=== PATIENT | female | born 1995 | race Two or more races ===

== ENCOUNTER 2024-09-25 13:00 | Inpatient (IN) | payer BC ==
[~2024-09-25] VITALS: Ht 157.5 cm; Wt 70.0 kg
--- NOTE | 2024-09-25 13:14 | ED.PDOC ---
History of Present Illness HPI Comments 29-year-old female with PMHx Bigeminal PVCs presents with a chief complaint near syncopal episode, with associated weakness, faintness, ringing in ear, blurred vision, palpitations, chest pain. 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 Time Seen by MD: 13:05 Reviewed Notes: Medications, Allergies Information Source: Patient Mode of Arrival: Ambulatory Severity: Moderate Timing: Minutes Duration: Since onset Prehospital treatment: None Past Medical History PAST MEDICAL HISTORY: Denies Past Medical History (Other): Bigeminy PVCs Surgical History: Denies all surgeries COACH BUILDER History: Denies all COACH BUILDER Hx Family History Family History: Reviewed,noncontributory to illness Social History Smoker: Non-Smoker Alcohol: Denies ETOH Use Drugs: Denies Drug Use Lives In: Home Constitutional: reports: weakness; denies: chills, diaphoresis, fatigue, fever, malaise, sweats, others EENTM: reports: blurred vision, ear ringing; denies: double vision, ear bleeding, ear discharge, ear drainage, ear pain, eye pain, eye redness, hearing loss, mouth pain, mouth swelling, nasal discharge, nose bleeding, nose congestion, nose pain, photophobia, tearing, throat pain, throat swelling, voice changes, others Respiratory: denies: cough, hemoptysis, orthopnea, SOB at rest, shortness of breath, SOB with excertion, stridor, wheezing, others Cardiovascular: reports: palpitations, syncope; denies: chest pain, dizzy spells, diaphoresis, Dyspnea on exertion, edema, irregular heart beat, left arm pain, lightheadedness, PND, others Gastrointestinal: denies: abdomen distended, abdominal pain, blood streaked bowels, constipated, diarrhea, dysphagia, difficulty swallowing, hematemesis, melena, nausea, poor appetite, poor fluid intake, rectal bleeding, rectal pain, vomiting, others Genitourinary: denies: abnormal vagina bleeding, burning, dyspareunia, dysuria, flank pain, frequency, hematuria, incontinence, pain, , vagina discharge, urgency, others Neurological: reports: headache; denies: dizziness, fainting, left sided numbness, left sided weakness, numbness, paresthesia, pre-existing deficit, right sided numbness, right sided weakness, seizure, speech problems, tingling, tremors, weakness, others Musculoskeletal: denies: back pain, gout, joint pain, joint swelling, muscle pain, muscle stiffness, neck pain, others Integumetry: denies: bruises, change in color, change in hair/nails, dryness, laceration, lesions, lumps, rash, wounds, others Allergic/Immunocompromised: denies: Difficulty Healing, Frequent Infections, Hives, Itching, others Hematologic/Lymphatic: denies: anemia, blood clots, easy bleeding, easy bruising, swollen glands, others Endocrine: denies: excessive hunger, excessive sweating, excessive thirst, excessive urination, flushing, intolerance to cold, intolerance to heat, unexplained weight gain, unexplained weight loss, others Psychiatric: denies: anxiety, bipolar disorder, depression, hopeless, panic disorder, schizophrenia, sleepless, suicidal, others All Other Systems: Reviewed and Negative Physical Exam General Appearance: No Apparent Distress, Normal HEENT: Normal ENT Inspection, Pharynx Normal, TMs Normal Neck: Full Range of Motion, Non-Tender, Normal, Normal Inspection Respiratory: Chest Non-Tender, Lungs Clear, No Accessory Muscle Use, No Respiratory Distress, Normal Breath Sounds Cardiovascular: No Edema, No JVD, No Murmur, No Gallop, Normal Peripheral Pulses, Regular Rate/Rhythm Breast Exam: Deferred Gastrointestinal: No Organomegaly, Non Tender, No Pulsatile Mass, Normal Bowel Sounds, Soft Genitalia: Deferred Pelvic: Deferred Rectal: Deferred Extremities: No calf tenderness, Normal capillary refill, Normal inspection, No rmal range of motion, Non-tender, No pedal edema Musculoskeletal : Apperance: Normal Neurologic: Alert, supervisor laboratory II-XII nml as Tested, No Motor Deficits, Normal Affect, Normal Mood, No Sensory Deficits Cerebellar Function: Normal Reflexes: Normal Skin: Dry, Normal Color, Warm Lymphatic: No Adenopathy Was a procedure done? Was a procedure done?: No Differential Dx Considerations may include: arrhythmias, electrolyte disorders, acs, dehydration, heat stroke, hypoglycemia, tia X-Ray, Labs, Meds, VS Vital Signs Date Time Temp Pulse Resp B/P (MAP) Pulse Ox O2 Delivery O2 Flow Rate FiO2 09/25/24 13:12 107 09/25/24 13:10 98.2 121 18 125/80 (95) 98 98.2 Lab Test 09/25/24 14:11 09/25/24 13:17 Range/Units Troponin I High Sensitivity Pending < 3 L </=34 ng/L White Blood Count 8.7 4.4-10.8 10^3/uL Red Blood Count 4.76 4.0-5.20 10^6/uL Hemoglobin 13.8 12.2-16.2 g/dL Hematocrit 40.8 36.0-46.0 % Mean Corpuscular Volume 85.6 80.0-100.0 fL Mean Corpuscular Hemoglobin 29.0 28.0-32.0 pg Mean Corpuscular Hemoglobin Concent 33.9 32.0-36.0 g/dL Red Cell Distribution Width 13.2 11.8-14.3 % Platelet Count 254 140-450 10^3/uL Mean Platelet Volume 11.2 H 6.9-10.8 fL Neutrophils (%) (Auto) 80.2 H 37.0-80.0 % Lymphocytes (%) (Auto) 12.0 10.0-50.0 % Monocytes (%) (Auto) 6.7 0.0-12.0 % Eosinophils (%) (Auto) 0.5 0.0-7.0 % Basophils (%) (Auto) 0.6 0.0-2.0 % Neutrophils # (Auto) 7.0 1.6-8.6 10 ^3/uL Lymphocytes # (Auto) 1.0 0.4-5.4 10 ^3/uL Monocytes # (Auto) 0.6 0-1.3 10 ^3/uL Eosinophils # (Auto) 0 0-0.8 10 ^3/uL Basophils # (Auto) 0.1 0-0.2 10 ^3/uL Nucleated Red Blood Cells 0.0 % Sodium Level 139 136-145 mmol/L Potassium Level 4.0 3.5-5.1 mmol/L Chloride Level 102 98-107 mmol/L Carbon Dioxide Level 28 20-31 mmol/L Anion Gap 9 5-15 Blood Urea Nitrogen 12 9-23 mg/dL Creatinine 1.04 H 0.550-1.02 mg/dL Glomerular Filtration Rate Calc 75 >90 mL/min BUN/Creatinine Ratio 11.5 10.0-20.0 Serum Glucose 132 H 74-106 mg/dL Calcium Level 10.1 8.7-10.4 mg/dL Time of 1ST Reevaluation: 13:38 Reevaluation 1ST: Unchanged Time of 2ND Reevaluation: 14:22 Reevaluation 2ND: Improved Consultation: Cardiology (dr mazariegos) Patient Education/Counseling: Diagnosis, Treatment, Prognosis, Need For Follow Up Family Education/Counseling: No Family Present Comments pt is on propranolol for svt. today she has multiple PVCs on the EKG. along with her new symptoms, i am concerned about a dangerous arrhythmia causing her symptom. i called Dr Mazariegos. pt does not see him till the end of the month. she will be admitted for monitoring and cardiology consult Departure 1 Departure Time of Disposition: 14:24 Impression: Primary Impression: Near syncope Additional Impression: Arrhythmia Qualified Codes: I49.9 - Cardiac arrhythmia, unspecified Disposition: ADMITTED INPATIENT Admit to: Tele Condition: Serious Discharged With: Self Critical Care Note Critical Care Time?: Yes (55 min-critical care time only) Critical care comment: due to concerns for deterioration of patient's condition, the care required my highest level of attention and readiness. i assessed the patient's condition, reviewed relevant documents, communicated with medical personnel, ordered the p marlena tests and treatments, reassessed for results and response to treatments, spoke to family and consultants and formulated a plan of care Stability Stability form required: No Heart Score Heart Score: Heart Score Response (Comments) Value History Moderate Suspicious 1 EKG Repolarization Disturb 1 Age <45 0 Risk Factors No known risk factors 0 Troponin Normal limit 0 Total 2 I personally scribed for HUMBERTO CARDOZA MD ([email or web address]) on 09/25/24 at 13:14. Electronically submitted by Stef Uriarte ([email or web address]). HUMBERTO CARDOZA MD Sep 25, 2024 13:14
[2024-09-25 13:38] LABS: Basophils # (auto) 0.1 10 ^3/uL (0-0.2); Basophils % (auto) 0.6 % (0.0-2.0); Eosinophils # (auto) 0 10 ^3/uL (0-0.8); Eosinophils % (auto) 0.5 % (0.0-7.0); Hematocrit 40.8 % (36.0-46.0); Hemoglobin 13.8 g/dL (12.2-16.2); Mean Corpuscular Hgb Conc. 33.9 g/dL (32.0-36.0); Mean Corpuscular Volume 85.6 fL (80.0-100.0); Monocytes # (auto) 0.6 10 ^3/uL (0-1.3); Monocytes % (auto) 6.7 % (0.0-12.0); Neutrophils % (auto) 80.2 % (37.0-80.0); Platelet Count (auto) 254 10^3/uL (140-450); Red Blood Cells 4.76 10^6/uL (4.0-5.20); Red Cell Distribution Width 13.2 % (11.8-14.3); White Blood Cell 8.7 10^3/uL (4.4-10.8)
[2024-09-25 13:40] LABS: Chloride 102 mmol/L (98-107); Sodium 139 mmol/L (136-145)
[2024-09-25 13:41] LABS: Anion Gap 9 (5-15); Calcium 10.1 mg/dL (8.7-10.4); Carbon Dioxide 28 mmol/L (20-31)
--- NOTE | 2024-09-25 13:45 | DVH ---
EXAM: XY CHEST PORTABLE HISTORY: near syncope COMPARISON: None TECHNIQUE: Portable AP view of the chest was performed. FINDINGS: No pneumothorax, consolidative infiltrates, or pulmonary edema. The heart is not enlarged. IMPRESSION: No acute intrathoracic process.
[2024-09-25 13:46] LABS: BUN/Creatinine Ratio 11.5 (10.0-20.0); Blood Urea Nitrogen 12 mg/dL (9-23)
[2024-09-25 13:48] LABS: Glucose 132 mg/dL (74-106)
[2024-09-25] MEDS: ASPirin 325 MG TAB PO ONE (16:43)
[2024-09-25 16:59] LABS: Thyroid Stimulating Hormone 0.55 uIU/mL (0.55-4.78)
[2024-09-25 17:00] VITALS: PULSE 83; RESP 19; O2SAT 95
--- NOTE | 2024-09-25 17:05 | DVHHPRES ---
History of Present Illness Resident Creating Document: JAMA ROMERO RESIDENT Reason for Visit: presyncope History of Present Illness 29-year-old female with past medical history of bigeminy and PVCs , was taking metoprolol and was following wet chemistry analyst as an outpatient presented with complaints of presyncope. 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 Patient did not lose consciousness but mentioned she had in the chair and later it resolved spontaneously. Patient presented in the ED after that. Currently patient patient is mild palpitations but is not mentioning of any chest pain, shortness of breath, nausea, vomiting, diarrhea, constipation, abdominal pain. 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 EKG done in the hospital revealed Bigemini PVCs Medical history Bigeminy PVCs Presyncope Past surgical history Denied Medication history Metoprolol succinate Social history Denied alcohol, smoking, marijuana or any other drug intake Mentioned that she drinks coffee in form of energy drinks Family History Nonsignificant to the illness Review of Systems Review of Systems as described in the HPI Allergies: Coded Allergies: Penicillins (Verified Allergy, Unknown, RASH, 09/25/24) Exam Vital Signs Vital Signs Date Time Temp Pulse Resp B/P (MAP) Pulse Ox O2 Delivery O2 Flow Rate FiO2 09/25/24 13:12 107 09/25/24 13:10 98.2 18 125/80 (95) 98 98.2 Exam Physical exam ( LIMITED as patient is in hallway ) Examination General Appearance: Alert, Oriented X3, Cooperative, No acute distress HEENT: EOMI Respiratory: Clear to auscultation, Normal air movement Cardiovascular: Regular rate, Normal S1, Normal S2 Abdominal: Normal bowel sounds Extremities: No cyanosis, No edema, Normal pulses, No tenderness/swelling Skin: No rashes, No breakdown Neuro: Normal gait, Normal speech, Strength at 5/5 X4 ext, Normal tone, Sensation intact, Cranial nerves 3-12 NL, Reflexes 2+ Psych/Mental Status: Mental status NL, Mood NL Labs/Xrays Labs Test 09/25/24 14:11 09/25/24 13:17 Range/Units Troponin I High Sensitivity < 3 L </=34 ng/L White Blood Count 8.7 4.4-10.8 10^3/uL Red Blood Count 4.76 4.0-5.20 10^6/uL Hemoglobin 13.8 12.2-16.2 g/dL Hematocrit 40.8 36.0-46.0 % Mean Corpuscular Volume 85.6 80.0-100.0 fL Mean Corpuscular Hemoglobin 29.0 28.0-32.0 pg Mean Corpuscular Hemoglobin Concent 33.9 32.0-36.0 g/dL Red Cell Distribution Width 13.2 11.8-14.3 % Platelet Count 254 140-450 10^3/uL Mean Platelet Volume 11.2 H 6.9-10.8 fL Neutrophils (%) (Auto) 80.2 H 37.0-80.0 % Lymphocytes (%) (Auto) 12.0 10.0-50.0 % Monocytes (%) (Auto) 6.7 0.0-12.0 % Eosinophils (%) (Auto) 0.5 0.0-7.0 % Basophils (%) (Auto) 0.6 0.0-2.0 % Neutrophils # (Auto) 7.0 1.6-8.6 10 ^3/uL Lymphocytes # (Auto) 1.0 0.4-5.4 10 ^3/uL Monocytes # (Auto) 0.6 0-1.3 10 ^3/uL Eosinophils # (Auto) 0 0-0.8 10 ^3/uL Basophils # (Auto) 0.1 0-0.2 10 ^3/uL Nucleated Red Blood Cells 0.0 % Sodium Level 139 136-145 mmol/L Potassium Level 4.0 3.5-5.1 mmol/L Chloride Level 102 98-107 mmol/L Carbon Dioxide Level 28 20-31 mmol/L Anion Gap 9 5-15 Blood Urea Nitrogen 12 9-23 mg/dL Creatinine 1.04 H 0.550-1.02 mg/dL Glomerular Filtration Rate Calc 75 >90 mL/min BUN/Creatinine Ratio 11.5 10.0-20.0 Serum Glucose 132 H 74-106 mg/dL Calcium Level 10.1 8.7-10.4 mg/dL Assessment/Plan Assessment/Plan Assessment/plan #Presyncope likely due to ?Symptomatic PVC -Orthostasis vitals -EKG monitoring -NCCT head -TSH, b12, folate #Bigemini PVCs ?symptomatic -Telemetry to calculate the burden -EKG -Echo -Cardiology consult Case discussion with Dr Rowley Plan discussed with: Patient, Other My Orders Orders - JAMA ROMERO RESIDENT Procedure Category Date Status Time Admit ADMIT 09/25/24 Transmitted 16:09 Oxygen By Nasal RT 09/25/24 Transmitted Cannula 16:09 Stat Ekg For Chest BENJY 09/25/24 In Process Pain 16:09 Notify Of Changes BENJY 09/25/24 In Process From Base 16:09 Siebel Architect For BENJY 09/25/24 In Process 24 Hours 16:09 Emergency Dysrhythmia BENJY 09/25/24 In Process Protocol 16:09 Rhythm Strips Once BENJY 09/25/24 In Process Every Shift 16:09 * Cardiology Consult CONS 09/25/24 Transmitted 16:09 Thyroid Stimulating LAB 09/25/24 In Process Hormone 16:13 Urinalysis LAB 09/25/24 Logged 16:13 Test, Urine LAB 09/25/24 Logged 16:13 Beta Hcg, Quantitative LAB 09/25/24 In Process 16:13 Echo 2d Mode Cardiac US 09/25/24 Logged DOP 16:13 Orthostatic Vital ORDERS 09/25/24 Transmitted Signs 16:13 Date of Service: Sep 25, 2024 Billing Provider: SONU ROWLEY MD Common Visit Codes: [id number] INP/OBS CARE (HIGH) JAMA ROMERO RESIDENT Sep 25, 2024 17:05 SONU ROWLEY MD Sep 28, 2024 13:44
[2024-09-25 17:19] LABS: Beta HCG, Quantitative 0.4 mIU/mL (1.5-4.2)
[2024-09-25] MEDS ORDERED: ACETAMINOPHEN 325 MG TAB PO PRN (18:15)
[2024-09-25] MEDS: ACETAMINOPHEN 325 MG TAB PO PRN (18:28)
[2024-09-25] MEDS: ONDANSETRON ODT 4 MG TAB PO PRN (18:28)
--- NOTE | 2024-09-25 18:53 | DVHINCON2 ---
Date Seen: Sep 25, 2024 Referring Physician MD Kristofer resident Reason for Consultation Symptomatic PVC's History of Present Illness This is a 29-year-old female patient who presents to emergency room with chief complaint of dizziness, blurry vision, tinnitus, and nausea. 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 She reports the symptoms lasted for approximately 5 minutes. She decided to come to the emergency room for further evaluation. Initial twelve lead electrocardiogram reveals sinus tachycardia with bigeminy PVCs. The patient denies any cardiac symptoms at time of assessment. Significant past medical history includes PVCs. The patient reports that she sees contract administration manager in the outpatient setting. Past Medical History Past medical history reviewed. No other significant than mentioned above. Past Surgical History Denies Family History Family history reviewed. Social History Patient has a previous history of tobacco use, quit two years ago now uses oral nicotine Denies any illicit drug use Denies any alcohol use Allergies: Coded Allergies: Penicillins (Verified Allergy, Unknown, RASH, 09/25/24) Home Meds Home medications reviewed. Current Medications Current Medications Medications (Trade) Dose Ordered Sig/Coleman Route PRN Reason Start Time Stop Time Status Last Admin Acetaminophen (Tylenol Tablet) 650 mg Q4HP PRN PO MODERATE PAIN (4-6 PAIN SCALE) 09/25/24 18:15 UNV Acetaminophen (Tylenol Tablet) 325 mg Q6HP PRN PO PAIN SCALE 1-3 OR TEMP>100.4 09/25/24 18:15 UNV Ondansetron HCl (Zofran Po) 4 mg Q4HP PRN PO NAUSEA / VOMITING 09/25/24 18:15 UNV Review of Systems Constitutional: No symptom reported Ears, Nose, & Throat: Tinnitus Eyes: Blurry vision Neurological: Dizziness Pulmonary/Respiratory: No symptoms reported Cardiovascular: No symptom reported Gastrointestinal: No symptom reported Genitourinary: No symptom reported Musculoskeletal: No symptom reported Skin: No symptom reported Psychiatric: No symptom reported Endocrine: No symptom reported Hematologic/Lymphatic: No symptom reported Vital Signs Vital Signs Date Time Temp Pulse Resp B/P (MAP) Pulse Ox O2 Delivery O2 Flow Rate FiO2 09/25/24 17:00 83 19 99/58 (72) 95 09/25/24 17:00 Room Air* 0 21 09/25/24 13:10 98.2 98.2 Physical Exam General Appearance: Cooperative. Well-developed. Well-nourished. No acute distress. Pulmonary/Respiratory: Clear, bilateral breaths sounds. Cardiovascular/Chest: Regular rate and rhythm. Peripheral Pulses: 2+ Radial (R). 2+ Radial (L). 2+ Pedal (R). 2+ Pedal (L) Abdominal Exam: Normal bowel sounds. Ankle Exam: Negative ankle edema Lower extremities: Negative lower extremity edema Neuro/Mental Status: A/OX4, coherent. Thoughts/Psych: Normal thought pattern. Appropriate mood and affect. Good judgment and insight. Appearance: No acute distress. Skin Exam: Normal inspection. Normal color. Warm and dry. Labs/Diagnostic Data Labs Test 09/25/24 17:58 09/25/24 14:11 09/25/24 13:17 Range/Units Troponin I High Sensitivity < 3 L </=34 ng/L Thyroid Stimulating Hormone (TSH) 0.55 0.55-4.78 uIU/mL Beta HCG, Quantitative 0.4 L 1.5-4.2 mIU/mL White Blood Count 8.7 4.4-10.8 10^3/uL Red Blood Count 4.76 4.0-5.20 10^6/uL Hemoglobin 13.8 12.2-16.2 g/dL Hematocrit 40.8 36.0-46.0 % Mean Corpuscular Volume 85.6 80.0-100.0 fL Mean Corpuscular Hemoglobin 29.0 28.0-32.0 pg Mean Corpuscular Hemoglobin Concent 33.9 32.0-36.0 g/dL Red Cell Distribution Width 13.2 11.8-14.3 % Platelet Count 254 140-450 10^3/uL Mean Platelet Volume 11.2 H 6.9-10.8 fL Neutrophils (%) (Auto) 80.2 H 37.0-80.0 % Lymphocytes (%) (Auto) 12.0 10.0-50.0 % Monocytes (%) (Auto) 6.7 0.0-12.0 % Eosinophils (%) (Auto) 0.5 0.0-7.0 % Basophils (%) (Auto) 0.6 0.0-2.0 % Neutrophils # (Auto) 7.0 1.6-8.6 10 ^3/uL Lymphocytes # (Auto) 1.0 0.4-5.4 10 ^3/uL Monocytes # (Auto) 0.6 0-1.3 10 ^3/uL Eosinophils # (Auto) 0 0-0.8 10 ^3/uL Basophils # (Auto) 0.1 0-0.2 10 ^3/uL Nucleated Red Blood Cells 0.0 % Sodium Level 139 136-145 mmol/L Potassium Level 4.0 3.5-5.1 mmol/L Chloride Level 102 98-107 mmol/L Carbon Dioxide Level 28 20-31 mmol/L Anion Gap 9 5-15 Blood Urea Nitrogen 12 9-23 mg/dL Creatinine 1.04 H 0.550-1.02 mg/dL Glomerular Filtration Rate Calc 75 >90 mL/min BUN/Creatinine Ratio 11.5 10.0-20.0 Serum Glucose 132 H 74-106 mg/dL Hemoglobin A1c 5.7 <5.7 % A1C Calcium Level 10.1 8.7-10.4 mg/dL Magnesium Level 1.9 1.6-2.6 mg/dL Assessment Sinus rhythm with bigeminal PVCs Rule out structural heart disease History of tobacco use Plan/Recommendation We will continue with the following plan/recommendations (Dr. Hdez): We will proceed with obtaining a transthoracic echocardiogram to evaluate cardiac function. Continue beta-macho for rate control, up titrate as park ated by blood pressure. Initiate oral magnesium. Close cardiac surveillance. The patient is scheduled to see underwear trimmer in the outpatient setting on 10/12/2024. Thank you for allowing us to care for this patient. Please call with any questions or concerns. Critical care time spent: 44 minutes This medical document was created using an electronic medical record system with voice recognition software and computerized dictation system. Although this document has been carefully reviewed, there might still be some phonetic and typographical errors. Occasional wrong-word or ``sound-alike substitutions may have occurred due to the inherent limitations of voice recognition software. These areas are purely typographical due to imperfections of the software programs and do not reflect any compromise in the patient's medical care. Please read the chart carefully and recognize, using context, where these substitutions have occurred. Plan discussed with: Patient NYHA Physical activity limitations: NA Date of Service: Sep 25, 2024 Billing Provider: SLOANE FOWLER Cardiology Common Codes: 97430-[id number] INP/OBS CARE (High) Cardiology Consultation Codes: [id number] CONSULT <45MIN SLOANE FOWLER Sep 25, 2024 18:53
[2024-09-25] MEDS: MAGNESIUM OXIDE 400 MG TAB PO ONE (19:00)
[2024-09-25 19:50] VITALS: PULSE 72; RESP 18; O2SAT 96
[2024-09-25] MEDS: METOPROLOL TARTRATE 25 MG TAB PO SCH (20:30)
--- NOTE | 2024-09-25 20:47 | DVH ---
CLINICAL HISTORY: Presyncope TECHNIQUE: Helical imaging carried out from skull base to vertex without intravenous contrast. This e xam was performed according to our departmental dose optimization program. Up-to-date CT equipment an d radiation dose reduction techniques are utilized as appropriate. CTDIVol: 55.07 mGy DLP: 974.86 mGy-cm WID: COMPARISON: None FINDINGS: The ventricles and subarachnoid spaces are normal in size and configuration. There is no midline chaka ft or mass effect. The banks white matter interfaces are maintained. The basal cisterns are patent. Th ere is no evidence of acute intracranial hemorrhage or extra-axial fluid collection. The mastoid air cells . Mild paranasal sinus mucosal thickening. IMPRESSION: No acute intracranial abnormality.
[2024-09-25 21:18] VITALS: BP_SYST 108; BP_SYST 110; BP_SYST 114; BP_DIAS 45; BP_DIAS 51; BP_DIAS 57; PULSE 51; PULSE 74; RESP 17; TEMP 97.4; O2SAT 97
[2024-09-25 23:18] VITALS: BP 108/45; PULSE 51; RESP 17; TEMP 97.4; O2SAT 97
[2024-09-26 01:00] VITALS: BP 100/65; PULSE 71; RESP 17; TEMP 95; O2SAT 98
[2024-09-26] MEDS ORDERED: METO25TA5 PO (03:11)
[2024-09-26 05:00] VITALS: BP 102/46; PULSE 65; RESP 17; TEMP 95.7; O2SAT 98
[2024-09-26] MEDS ORDERED: POTASSIUM CHL 20MEQ/100ML 200 ML IV ONE (05:13)
[2024-09-26 08:00] VITALS: PULSE 66; PULSE 75; RESP 18; O2SAT 98
[2024-09-26] MEDS: MAGNESIUM OXIDE 400 MG TAB PO SCH (08:38)
[2024-09-26 09:00] VITALS: BP 110/64; PULSE 66; RESP 18; TEMP 97.5; O2SAT 98
[2024-09-26 09:52] LABS: Urine Bacteria FEW /hpf (None Seen); Urine Blood Negative /uL (Negative); Urine Clarity Clear (Clear); Urine Color Light-Yellow (Yellow); Urine Mucus FEW (None Seen); Urine Protein, UAD Negative (Negative); Urine Specific Gravity 1.017 (1.001-1.035); Urine Squamous Epithelial Cell FEW /hpf (<5); Urine Urobilinogen Normal (Negative); Urine WBC 2 /HPF (0-5)
[2024-09-26] MEDS ORDERED: METO25TA93 PO (12:39)
--- NOTE | 2024-09-26 12:56 | DVHPN2 ---
Consult Progress Note Subjective Patient reports: No new complaints Objective vital signs Vital Sign Date Time Temp Pulse Resp B/P (MAP) Pulse Ox O2 Delivery O2 Flow Rate FiO2 09/26/24 09:00 97.5 66 18 110/64 (79) 98 97.5 09/26/24 08:00 Room Air* 0 21 Total Intake and Output 09/25/24 09/25/24 09/26/24 15:00 23:00 07:00 Intake Total 800 ml Balance 800 ml medications Current Medications Medications Dose Ordered Sig/Coleman Route Start Time Stop Time Status Last Admin Dose Admin Acetaminophen 650 mg Q4HP PRN PO 09/25/24 18:15 09/25/24 18:28 650 MG Acetaminophen 325 mg Q6HP PRN PO 09/25/24 18:15 Ondansetron HCl 4 mg Q4HP PRN PO 09/25/24 18:15 09/25/24 18:28 4 MG Magnesium Oxide 400 mg DAILY PO 09/26/24 10:00 09/26/24 08:38 400 MG Metoprolol Tartrate 25 mg BID PO 09/25/24 22:00 09/26/24 08:38 25 MG Examination: CVS:Abnormal (Telemetry reviewed consistent with sinus rhythm with occasional intermittent bigeminy PVCs.) laboratory and microbiology Laboratory Tests 09/25/24 13:17 Test 09/25/24 13:17 Range/Units Serum Glucose 132 H 74-106 mg/dL Problem List/Assessment/Plan Problem List/Assessment/Plan Assessment Sinus rhythm with bigeminal PVCs Rule out structural heart disease History of tobacco use Plan/Recommendation We will continue with the following plan/recommendations (Dr. Hdez): Continue beta-macho for rate control, up titrate as tolerated by blood pressure. Continue oral magnesium. Close cardiac surveillance. Follow up echo place, if no significant abnormalities noted, patient is stable for DC from Cardiology standpoint with plan to continue scheduled appointment with vice president biostatistics in the outpatient setting on 10/12/2024. Thank you for allowing us to care for this patient. Please call with any questions or concerns. Plan discussed with: Patient Date of Service: Sep 26, 2024 Billing Provider: TIM EMERY Common Visit Codes: [id number] INP/OBS CARE(HIGH) TIM EMERY Sep 26, 2024 12:56
[2024-09-26 13:00] VITALS: BP_SYST 103; BP_SYST 109; BP_SYST 112; BP_DIAS 65; BP_DIAS 67; BP_DIAS 76; PULSE 62; RESP 18; TEMP 97.7; O2SAT 98
[2024-09-26 15:29] VITALS: BP 108/64; PULSE 62; RESP 16; TEMP 36.5; O2SAT 99
--- NOTE | 2024-09-26 17:06 | DVHDS2 ---
Discharge Summary Date of Admission Sep 25, 2024 at 16:09 Date of Discharge: Sep 26, 2024 Labs/Diagnostic Data: Laboratory Results Test 09/26/24 09:40 09/25/24 18:19 09/25/24 14:11 09/25/24 13:17 Urine Color Light-yellow (Yellow) Urine Clarity Clear (Clear) Urine pH 6.0 (5.0-9.0) Urine Specific [place] 1.017 (1.001-1.035) Urine Protein Negative (Negative) Urine Ketones Negative (Negative) Urine Blood Negative /uL (Negative) Urine Nitrite Negative (Negative) Urine Bilirubin Negative (Negative) Urine Urobilinogen Normal mg/dL (Negative) Urine Leukocyte Esterase Negative /uL (Negative) Urine RBC 3 /hpf (0 - 4) Urine Microscopic WBC 2 /HPF (0-5) Urine Squamous Epithelial Cells Few /hpf (<5) Urine Bacteria Few /hpf (None Seen) Urine Mucus Few (None Seen) Urine Glucose Normal mg/dL (Normal) Urine Test Negative (Negative) Vitamin B12 Level 688 pg/mL (211-911) Troponin I High Sensitivity < 3 ng/L (</=34) Thyroid Stimulating Hormone (TSH) 0.55 uIU/mL (0.55-4.78) Beta HCG, Quantitative 0.4 mIU/mL (1.5-4.2) White Blood Count 8.7 10^3/uL (4.4-10.8) Red Blood Count 4.76 10^6/uL (4.0-5.20) Hemoglobin 13.8 g/dL (12.2-16.2) Hematocrit 40.8 % (36.0-46.0) Mean Corpuscular Volume 85.6 fL (80.0-100.0) Mean Corpuscular Hemoglobin 29.0 pg (28.0-32.0) Mean Corpuscular Hemoglobin Concent 33.9 g/dL (32.0-36.0) Red Cell Distribution Width 13.2 % (11.8-14.3) Platelet Count 254 10^3/uL (140-450) Mean Platelet Volume 11.2 fL (6.9-10.8) Neutrophils (%) (Auto) 80.2 % (37.0-80.0) Lymphocytes (%) (Auto) 12.0 % (10.0-50.0) Monocytes (%) (Auto) 6.7 % (0.0-12.0) Eosinophils (%) (Auto) 0.5 % (0.0-7.0) Basophils (%) (Auto) 0.6 % (0.0-2.0) Neutrophils # (Auto) 7.0 10 ^3/uL (1.6-8.6) Lymphocytes # (Auto) 1.0 10 ^3/uL (0.4-5.4) Monocytes # (Auto) 0.6 10 ^3/uL (0-1.3) Eosinophils # (Auto) 0 10 ^3/uL (0-0.8) Basophils # (Auto) 0.1 10 ^3/uL (0-0.2) Nucleated Red Blood Cells 0.0 % Sodium Level 139 mmol/L (136-145) Potassium Level 4.0 mmol/L (3.5-5.1) Chloride Level 102 mmol/L (98-107) Carbon Dioxide Level 28 mmol/L (20-31) Anion Gap 9 (5-15) Blood Urea Nitrogen 12 mg/dL (9-23) Creatinine 1.04 mg/dL (0.550-1.02) Glomerular Filtration Rate Calc 75 mL/min (>90) BUN/Creatinine Ratio 11.5 (10.0-20.0) Serum Glucose 132 mg/dL (74-106) Hemoglobin A1c 5.7 % A1C (<5.7) Calcium Level 10.1 mg/dL (8.7-10.4) Magnesium Level 1.9 mg/dL (1.6-2.6) Other Laboratory Tests 09/25/24 13:17 Brief Hx & Hospital Course: Final diagnoses: Sinus rhythm with bigeminal PVCs Palpitations due to the above 29 year old female takes metoprolol 25 mg qd, came with palpitations, PVCs Cardiology recommended to increase metoprolol to bid She is asymptomatic now DC home F/U w PCP [facility] Condition at Discharge: Stable Final Diagnosis/Problems List PVCs Bigeminy Discharge Disposition: Home SNF Discharge Will this Physician continue t: No Discharge Instruct/Medications Diet: Regular Activity: No Restrictions, As Tolerated Follow Up/Referral: PCP [facility] Medications: Increase metoprolol to 25 mg bid Discharge Statement: "Patient was advised to return to the ER or call 911 if any headaches, dizziness, shortness of breath, chest pain, abdominal pain, bleeding, fevers, or worsening of medical condition. Patient was counseled about treatment plan, medications, possible side effects, patientverbalized understanding. All questions were answered to the best of my ability. This discharge took greater then 30 minutes in planning, reviewing documentation, counseling the patient, and discussing with other team members." ASSESSMENT ASSESSMENT Assessment [facility] Date of Service: Sep 26, 2024 Billing Provider: ALLAN MELENDEZ MD Common Visit Codes: 00180-NDI/OBS DISCH DAY >30min ALLAN MELENDEZ MD Sep 26, 2024 17:06
[2024-09-28 10:39] LABS: Folate (Folic Acid) 16.9 ng/mL (>5.38)
--- NOTE | 2024-09-28 12:21 | ECG ---
[facility] [place] Test Date: 2024-09-25 Test Time: 13:12:31 Pat Name: AMBAR PARRY Department: ED Room: 0201T Gender: F [employer] Spr[employer]: PAULY : [id number] Requested By: HUMBERTO CARDOZA Order Number: [id number] Reading MD: Measurements Intervals [place] Rate: 107 P: 42 WV: 141 QRS: 31 QRSD: 72 T: 12 QT: 330 QTc: 441 Interpretive Statements Sinus tachycardia Ventricular bigeminy Low voltage, precordial leads Please click the below link to view image of tracing.
== END 2024-09-26 15:47 | disposition home or self-care (01) | DRG 310 ==
LOC: ER 13:00 → EEVIPCON 13:00 → OVERFLOW 16:09 → TELE-CENTR 21:18
PROVIDERS: ADMIT Student in an Organized Health Care Education/Training Program; ATTEND Internal Medicine
DX: I49.3 Ventricular premature depolarization (principal); Z87.891 Personal history of nicotine dependence; Z88.0 Allergy status to penicillin
CPT/HCPCS: 36415; 70450; 71045; 80048; 81001; 81025; 82607; 82746; 83036; 83735; 84443; 84484; 84702; 85025; 93005; 99291; G0378; J3480; Q0162